=== PATIENT | female | born 1975 | race Caucasian/White ===

== ENCOUNTER 2017-08-15 07:08 | Day surgery (SDC) | payer MEDICAID ==
[~2017-08-15 07:08] MED LIST: ACETAMINOPHEN 1,000 MG/100 ML BTL IV ONE; CEFAZOLIN 2 Gram 2 GM/50 ML BAG IVPB ONE
[2017-08-15] MEDS ORDERED: ONDANSETRON HCL IV 4 MG/2 ML VIAL IVP ONE (07:09)
[2017-08-15] MEDS ORDERED: PROPOFOL 10 MG/ML VIAL IV ONE (07:09)
[2017-08-15] MEDS ORDERED: *PACU ONLY* KETAMINE HCL 10 MG/ML (20ML) VIAL IV ONE (07:09)
[2017-08-15] MEDS ORDERED: FENTANYL PF 100MCG/2ML VIAL IV ONE (07:09)
[2017-08-15] MEDS ORDERED: BUPIVACAINE 0.75% W/EPI MPF 30ML VIAL IVP ONE (07:09)
[2017-08-15] MEDS ORDERED: HYDROCODONE/APAP 5/325MG TABLET PO ONE (07:09)
--- NOTE | 2017-08-17 12:40 | Operative Note ---
DATE OF SURGERY: 08/15/2017 Surgeon: Tomy Levy DO PREOPERATIVE DIAGNOSIS: Multiple scalp masses. POSTOPERATIVE DIAGNOSIS: Multiple scalp masses. OPERATION: Excision of scalp mass x4. There were 4 total. Two measured 0.5 cm into the subcu and two measured 1.0 cm into the subcu. Indication: The patient is a 41-year-old female who has had multiple masses on her scalp. These all have the clinical appearance of probable sebaceous cysts. We did discuss excision; risks, benefits, and alternatives. Risks include bleeding, infection, recurrence. She understood this fully. PROCEDURE: Thereafter, the patient was brought to the operating room and placed in a supine position. Local IV sedation was given per the department of anesthesia. The patient's scalp had been shaved prior. Her hair was put in rubber bands to expose the regions and they were prepped and draped in the usual fashion. Each one was anesthetized with a total of 2 mL of 0.25% Sensorcaine with epinephrine. Incision was made over each and carried down to the capsule of a large sebaceous cyst. These were dissected free and passed off the field. Each one was closed with 3-0 Prolene. Two cysts were 0.5 cm and two were 1.0 cm. She tolerated the procedure well. CC: Diana AHN
== END 2017-08-15 10:30 | disposition home or self-care (01) ==
LOC: SUR 07:08
PROVIDERS: ATTEND Surgery
DX: L72.12 Trichodermal cyst (principal)
CPT/HCPCS: 11423; 00300; J2405; J3010; J0690; J3490

== ENCOUNTER 2017-09-25 08:32 | Emergency (ER) | payer MEDICAID ==
--- NOTE | 2017-09-25 08:49 | Emergency Department Record ---
History of Present Illness - General Chief Complaint: Cough Stated Complaint: COUGH,CONGESTION Time Seen by Provider: 09/25/17 08:42 Source: Patient Mode of Arrival: Ambulatory Limitations: No limitations - History of Present Illness Initial Comments: The patient is here due to a cough, nasal congestion and CP ONLY with coughing for one day. She denies any fever, sputum, SOB, or HOOVER. MD Complaint: Cough, Nasal congestion, Rhinorrhea Onset/Timin -: Days(s) Consistency: Constant - Related Data Previous Rx's Medication Instructions Recorded Albuterol Sulfate [Proair Hfa] 2 puff IH QID PRN #1 inhaler 09/25/17 Azithromycin [Zithromax] 250 mg PO ASDIR #6 tab 09/25/17 Allergies Allergy/AdvReac Type Severity Reaction Status Date / Time No Known Drug Allergies Allergy Verified 09/25/17 08:37 Travel Screening - Travel/Exposure Within Last 30 Days Have you traveled within the last 30 days?: No Review of Systems Constitutional: Denies: Chills, Fever Eyes: Denies: Eye discharge ENT: Reports: Congestion Respiratory: Reports: Cough. Denies: Dyspnea Past Medical History - SOCIAL HISTORY Smoking Status: Never smoker Alcohol Use: None Drug Use: None - RESPIRATORY Hx Respiratory Disorders: No - CARDIOVASCULAR Hx Cardio Disorders: No - NEURO Hx Neuro Disorders: Yes Hx Headaches: Yes (occassionally) - GI Hx GI Disorders: Yes Hx Reflux: Yes (occassionally) - Hx Genitourinary Disorders: No Comment:: s/p tubal - ENDOCRINE Hx Endocrine Disorders: No - MUSCULOSKELETAL Hx Musculoskeletal Disorders: Yes Hx Arthritis: Yes (knee and hip) - PSYCH Hx Psych Problems: Yes Hx Anxiety: Yes Hx Depression: Yes - HEMATOLOGY/ONCOLOGY Hx Hematology/Oncology Disorders: No Family Medical History Any Significant Family History?: Yes Hx Anxiety: Father Hx Diabetes: Mother Physical Exam - General General Appearance: Alert, Oriented x3, Cooperative, No acute distress - Head Head exam: Atraumatic, Normocephalic, Normal inspection - Eye Eye exam: Normal appearance, PERRL - ENT ENT exam: TM's normal bilaterally Throat exam: Tonsillar erythema. negative: Normal inspection, Tonsillomegaly, Tonsillar exudate, R peritonsillar mass, L peritonsillar mass - Neck Neck exam: Normal inspection, Full ROM. negative: Lymphadenopathy, Meningismus , Tenderness - Respiratory Respiratory exam: Normal lung sounds bilaterally. negative: Respiratory distress - Cardiovascular Cardiovascular Exam: Regular rate, Normal rhythm, Normal heart sounds - GI/Abdominal GI/Abdominal exam: Soft, Normal bowel sounds. negative: Tenderness Course Vital Signs 09/25/17 08:38 Temperature 97.8 F Pulse Rate 109 H Respiratory 20 Rate Blood Pressure 116/81 Pulse Ox 97 - Reevaluation(s) Reevaluation #1: I did discuss the XRAY results with the patient and the need for F/U. 09/25/17 09:22 Medical Decision Making - Data Complexity MDM Data: X-Ray Ordered and/or Reviewed (CXR: poss mild R lung infiltrate.) Disposition Disposition: Discharge Clinical Impression: URI (upper respiratory infection) Qualifiers: URI type: unspecified URI Qualified Code(s): J06.9 - Acute upper respiratory infection, unspecified Disposition: Home, Self-Care Condition: (2) Stable Instructions: Cold Symptoms (ED) Additional Instructions: Please take the medicines as directed. Please see your PCP if not better in 3 days and return to the ER for any worsening symptoms. Prescriptions: Albuterol Sulfate [Proair Hfa] 2 puff IH QID PRN #1 inhaler PRN Reason: Cough And Difficulty Breathing Azithromycin [Zithromax] 250 mg PO ASDIR #6 tab Forms: Patient Portal Access Time of Disposition: 09:24 Quality - Quality Measures Quality Measures: N/A - Blood Pressure Screening View Details: Yes Does Patient Have Any of the Following: No Blood Pressure Classification: Pre-Hypertensive BP Reading Systolic Measurement: 102 Diastolic Measurement: 81 Screening for High Blood Pressure: < Pre-Hypertensive BP, F/U Documented > [ G8950] Pre-Hypertensive Follow-up Interventions: Referral to alternative/primary care provider.
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
== END 2017-09-25 09:31 | disposition home or self-care (01) ==
LOC: ER 08:32
DX: J06.9 Acute upper respiratory infection, unspecified (principal); R05 Cough; R06.00 Dyspnea, unspecified
CPT/HCPCS: 71046; 99283

== ENCOUNTER 2018-02-06 07:50 | Emergency (ER) | payer MEDICAID ==
[2018-02-06] MEDS ORDERED: Diph,Pert(Acell),Tet Vac 0.5 ML SYR IM ONE (07:59)
[2018-02-06] MEDS ORDERED: CLINDAMYCIN 150 MG CAP PO ONE (07:59)
[2018-02-06] MEDS ORDERED: ONDANSETRON 4 MG ODT TABLET SL ONE (08:30)
[2018-02-06] MEDS ORDERED: MAGNESIUM HYDROXIDE/AL HYDROX 30 ML, LIDOCAINE VISC 2% 15ML 15 ML PO ONE ×2 (08:30)
[2018-02-06] MEDS ORDERED: SUCRALFATE 1 G/10 ML UD PO ONE (08:56)
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
== END 2018-02-06 09:24 | disposition home or self-care (01) ==
LOC: ER 07:50
DX: T25.122A Burn of first degree of left foot, initial encounter (principal); R12 Heartburn; R11.2 Nausea with vomiting, unspecified; T36.8X5A Adverse effect of other systemic antibiotics, initial encounter; X12.XXXA Contact with other hot fluids, initial encounter; Y92.230 Patient room in hospital as the place of occurrence of the external cause
CPT/HCPCS: 16020; 99283 ×2; 96372; J3490; 90715

== ENCOUNTER 2018-07-22 08:44 | Emergency (ER) | payer SELFPAY ==
--- NOTE | 2018-07-22 08:57 | Emergency Department Record ---
History of Present Illness - General Chief Complaint: Abdominal Pain Stated Complaint: ABDOMINAL PAIN Time Seen by Provider: 07/22/18 08:56 - Related Data Previous Rx's Medication Instructions Recorded Ciprofloxacin HCl [Cipro] 500 mg PO Q12HR #20 tablet 07/22/18 Phenazopyridine HCl [Pyridium] 100 mg PO TID #9 tablet 07/22/18 Allergies Allergy/AdvReac Type Severity Reaction Status Date / Time clindamycin Allergy CHEST PAIN Unverified 04/26/18 13:21 Past Medical History - SOCIAL HISTORY Smoking Status: Never smoker Drug Use: None - RESPIRATORY Hx Respiratory Disorders: No - CARDIOVASCULAR Hx Cardio Disorders: No - NEURO Hx Neuro Disorders: Yes Hx Headaches: Yes (occassionally) - GI Hx GI Disorders: Yes Hx Reflux: Yes (occassionally) - Hx Genitourinary Disorders: No Comment:: s/p tubal - ENDOCRINE Hx Endocrine Disorders: No - MUSCULOSKELETAL Hx Musculoskeletal Disorders: Yes Hx Arthritis: Yes (knee and hip) - PSYCH Hx Psych Problems: Yes Hx Anxiety: Yes Hx Depression: Yes - HEMATOLOGY/ONCOLOGY Hx Hematology/Oncology Disorders: No Family Medical History Hx Anxiety: Father Hx Diabetes: Mother Medical Decision Making - Lab Data Result diagrams: 07/22/18 09:25 07/22/18 09:25 Disposition Clinical Impression: Abdominal pain, UTI (urinary tract infection) Disposition: Home, Self-Care Condition: (1) Good Additional Instructions: follow up with family Dr in one week sooner if worse also use advil OTC three pills three times a day Prescriptions: Ciprofloxacin HCl [Cipro] 500 mg PO Q12HR #20 tablet Phenazopyridine HCl [Pyridium] 100 mg PO TID #9 tablet Forms: Patient Portal Access Quality - Quality Measures Quality Measures: N/A - Blood Pressure Screening Does Patient Have Any of the Following: No Blood Pressure Classification: Normal BP Reading Systolic Measurement: 114 Diastolic Measurement: 72 Screening for High Blood Pressure: < Normal BP, F/U Not Required > [G8783]
--- NOTE | 2018-07-22 09:05 | Emergency Department Record ---
History of Present Illness - General Chief Complaint: Abdominal Pain Stated Complaint: ABDOMINAL PAIN Time Seen by Provider: 07/22/18 08:56 Mode of Arrival: Ambulatory - History of Present Illness Initial Comments: left lower quad pain which started at 2 am today sharp pain which goes across the lower abdominal pain. Yesterday nausea and no vomiting or diarrhea, no dysuria and LMP dec 15 normal. Onset/Timin -: Hour(s) Location: LLQ Radiation: RLQ Migration to: No migration Severity: Moderate Severity scale (1-10): 8 Quality: Sharp Consistency: Intermittent Improves With: Rest Worsens With: Movement Context: Other - Related Data LMP Date: 07/08/18 Patient : No Previous Rx's Medication Instructions Recorded Ciprofloxacin HCl [Cipro] 500 mg PO Q12HR #20 tablet 07/22/18 Phenazopyridine HCl [Pyridium] 100 mg PO TID #9 tablet 07/22/18 Allergies Allergy/AdvReac Type Severity Reaction Status Date / Time clindamycin Allergy CHEST PAIN Unverified 04/26/18 13:21 Travel Screening - Travel/Exposure Within Last 30 Days Have you traveled within the last 30 days?: No - Travel/Exposure Within Last Year Have you traveled outside the [place] in the last year?: No - Additonal Travel Details Have you been exposed to anyone with a communicable illness?: No - Travel Symptoms Symptom Screening: None Review of Systems Reviewed: No additional complaints except as noted below Constitutional: Reports: As per HPI. Denies: Chills, Fever, Malaise, Night sweats, Weakness, Weight change Eyes: Reports: As per HPI. Denies: Eye discharge, Eye pain, Photophobia, Vision change ENT: Reports: As per HPI. Denies: Congestion, Dental pain, Ear pain, Epistaxis , Hearing loss, Throat pain Respiratory: Reports: As per HPI. Denies: Cough, Dyspnea, Hemoptysis, Stridor, Wheezes Cardiovascular: Reports: As per HPI. Denies: Arrhythmia, Chest pain, Dyspnea on exertion, Edema, Murmurs, Orthopnea, Palpitations, Paroxysmal nocturnal dyspnea, Rheumatic Fever, Syncope Endocrine: Reports: As per HPI. Denies: Fatigue, Heat or cold intolerance, Polydipsia, Polyuria Gastrointestinal: Reports: As per HPI, Abdominal pain, Nausea. Denies: Constipation, Diarrhea, Hematemesis, Hematochezia, Melena, Vomiting Genitourinary: Reports: As per HPI. Denies: Abnormal menses, Discharge, Dyspareunia, Dysuria, Frequency, Hematuria, Incontinence, Retention, Urgency Musculoskeletal: Reports: As per HPI. Denies: Arthralgia, Back pain, Gout, Joint swelling, Myalgia, Neck pain Skin: Reports: As per HPI. Denies: Bruising, Change in color, Change in hair/ nails, Lesions, Pruritus, Rash Neurological: Reports: As per HPI. Denies: Abnormal gait, Confusion, Headache, Numbness, Paresthesias, Seizure, Tingling, Tremors, Vertigo, Weakness Psychiatric: Reports: As per HPI. Denies: Anxiety, Auditory hallucinations, Depression, Homicidal thoughts, Suicidal thoughts, Visual hallucinations Hematological/Lymphatic: Reports: As per HPI. Denies: Anemia, Blood Clots, Easy bleeding, Easy bruising, Swollen glands Past Medical History - SOCIAL HISTORY Smoking Status: Never smoker Drug Use: None - RESPIRATORY Hx Respiratory Disorders: No - CARDIOVASCULAR Hx Cardio Disorders: No - NEURO Hx Neuro Disorders: Yes Hx Headaches: Yes (occassionally) - GI Hx GI Disorders: Yes Hx Reflux: Yes (occassionally) - Hx Genitourinary Disorders: No Comment:: s/p tubal - ENDOCRINE Hx Endocrine Disorders: No - MUSCULOSKELETAL Hx Musculoskeletal Disorders: Yes Hx Arthritis: Yes (knee and hip) - PSYCH Hx Psych Problems: Yes Hx Anxiety: Yes Hx Depression: Yes - HEMATOLOGY/ONCOLOGY Hx Hematology/Oncology Disorders: No Family Medical History Hx Anxiety: Father Hx Diabetes: Mother Physical Exam - General General Appearance: Alert, Oriented x3, Cooperative, No acute distress - Head Head exam: Normal inspection - Eye Eye exam: Normal appearance, PERRL Pupils: Normal accommodation - ENT ENT exam: Normal exam, Mucous membranes moist, Normal external ear exam, Normal orophraynx, TM's normal bilaterally Ear exam: Normal external inspection. negative: External canal tenderness Nasal Exam: Normal inspection. negative: Discharge, Sinus tenderness Mouth exam: Normal external inspection, Tongue normal Teeth exam: Normal inspection. negative: Dental caries Throat exam: Normal inspection. negative: Tonsillar erythema, Tonsillar exudate - Neck Neck exam: Normal inspection, Full ROM. negative: Tenderness - Respiratory Respiratory exam: Normal lung sounds bilaterally. negative: Respiratory distress - Cardiovascular Cardiovascular Exam: Regular rate, Normal rhythm, Normal heart sounds - GI/Abdominal GI/Abdominal exam: Soft, Normal bowel sounds, Tenderness (left lower quad). negative: Distended, Guarding, Mass, Rebound, Rigid - Rectal Rectal exam: Deferred - exam: Deferred - Extremities Extremities exam: Normal inspection, Full ROM, Normal capillary refill. negative: Tenderness - Back Back exam: Reports: Normal inspection, Full ROM. Denies: Muscle spasm, Rash noted, Tenderness - Neurological Neurological exam: Alert, Normal gait, Oriented X3, Reflexes normal - Psychiatric Psychiatric exam: Normal affect, Normal mood - Skin Skin exam: Dry, Intact, Normal color, Warm Course Vital Signs 07/22/18 08:47 Temperature 97.6 F Pulse Rate 84 Respiratory 18 Rate Blood Pressure 114/72 Pulse Ox 99 - Reevaluation(s) Reevaluation #1: Patient stated she has had ibuprofen in the last couple of days 07/22/18 09:09 Medical Decision Making - Data Complexity MDM Data: Labs Ordered and/or Reviewed (UA wbc greater than 50), X-Ray Ordered and/or Reviewed (CT abdomin and pelvis negative) - Lab Data Result diagrams: 07/22/18 09:25 07/22/18 09:25 Disposition Clinical Impression: Abdominal pain Qualifiers: Abdominal location: left lower quadrant Qualified Code(s): R10.32 - Left lower quadrant pain UTI (urinary tract infection) Qualifiers: Urinary tract infection type: acute cystitis Hematuria presence: without hematuria Qualified Code(s): N30.00 - Acute cystitis without hematuria Disposition: Home, Self-Care Condition: (1) Good Additional Instructions: follow up with family Dr in one week sooner if worse also use advil OTC three pills three times a day Prescriptions: Ciprofloxacin HCl [Cipro] 500 mg PO Q12HR #20 tablet Phenazopyridine HCl [Pyridium] 100 mg PO TID #9 tablet Forms: Patient Portal Access Time of Disposition: 10:39 Quality - Quality Measures Quality Measures: N/A - Blood Pressure Screening Does Patient Have Any of the Following: No Blood Pressure Classification: Normal BP Reading Systolic Measurement: 114 Diastolic Measurement: 72 Screening for High Blood Pressure: < Normal BP, F/U Not Required > [G8783]
[2018-07-22] MEDS ORDERED: 0.9 % SODIUM CHLORIDE 1,000 ML BAG IV ONE (09:06)
[2018-07-22] MEDS ORDERED: KETOROLAC 30 MG/ML VIAL IVP ONE (09:06)
[2018-07-22 09:30] LABS: BASO % 0.7 % (0-6); EOS % 2.9 % (0-6); GRAN % 57.8 % (47-80); HEMATOCRIT 37.6 % (35.0-47.0); HEMOGLOBIN 12.6 gm/dl (11.6-16.0); LYMPH % 29.5 % (16-45); MEAN CELL VOLUME 91.5 fl (81-97); MEAN CORPUSCULAR HEMOGLOBIN 30.7 pg (27-33); MEAN CORPUSCULAR HGB CONC 33.5 g/dl (32-36); MEAN PLATELET VOLUME 10.3 fl (7.4-10.4); MONO % 9.1 % (0-9); PLATELET COUNT 369 K/uL (130-400); RED BLOOD COUNT 4.11 M/uL (3.80-5.40); WHITE BLOOD COUNT W/O DIFF 7.6 K/uL (4.2-12.2)
[2018-07-22 09:37] LABS: URINE APPEARANCE SL CLOUDY; URINE BILIRUBIN NEGATIVE (NEGATIVE); URINE BLOOD LARGE (NEGATIVE); URINE COLOR YELLOW; URINE GLUCOSE (UA) NEGATIVE (NEGATIVE); URINE KETONE NEGATIVE (NEGATIVE); URINE LEUKOCYTE ESTERASE LARGE (NEGATIVE); URINE NITRITE NEGATIVE (NEGATIVE); URINE PROTEIN NEGATIVE (NEGATIVE); URINE UROBILINOGEN 0.2 E.U./dL (0.20 - 1.00)
[2018-07-22 09:40] LABS: BLOOD UREA NITROGEN 6 mg/dL (6-20)
[2018-07-22 09:41] LABS: CREATININE 0.7 mg/dL (0.5-0.9); EST GLOMERULAR FILTRATION RATE > 60 mL/min; HCG,QUALITATIVE URINE NEGATIVE (NEGATIVE); TOTAL PROTEIN 7.2 g/dL (6.6-8.7)
[2018-07-22 09:43] LABS: GLUCOSE,RANDOM 97 mg/dL (74-109)
[2018-07-22 09:46] LABS: ALBUMIN 3.8 g/dL (4.0-5.0); ALKALINE PHOSPHATASE 111 U/L (35-104); ALT/SGPT 11 U/L (<33); AST/SGOT 11 U/L (10.0-35.0); LIPASE 22 U/L (13-60); URINE WBC >50 (0-2/hpf)
[2018-07-22 09:47] LABS: BILIRUBIN,DIRECT < 0.2 mg/dL (0-0.3); URINE BACTERIA 3+; URINE SQUAMOUS EPITHELIAL CELL 16 - 20 /hpf; URINE TRANSITIONAL EPI CELLS 0 - 2 /hpf
[2018-07-22] MEDS ORDERED: CIPROFLOXACIN HCL 500 MG TABLET PO ONE (10:30)
[2018-07-22] MEDS ORDERED: PHENAZOPYRIDINE HCL 95 MG TABLET PO ONE (10:34)
--- NOTE | 2018-07-23 09:26 | CT SCAN REPORT ---
EXAM: CT SCAN ABDOMEN/PELVIS WO CONTRAST HISTORY: LEFT LOWER QUADRANT PAIN AND FLANK PAIN. TECHNIQUE: Routine CT imaging of the abdomen and pelvis obtained without contrast. COMPARISON: 06/25/10. FINDINGS: There is bibasilar atelectasis or scar. Liver, gallbladder, pancreas, spleen, and adrenals have a normal noncontrast appearance. No renal or ureteral calculi or hydronephrosis. There is an exophytic cyst lower pole right kidney. The bowel is normal in caliber. Appendix has a normal CT appearance. No gastrointestinal inflammatory change. The bladder is unremarkable. Uterus is retroverted. Aorta is normal in caliber. No abdominal or pelvic lymphadenopathy. No free air or free fluid. There is a tiny fat-containing periumbilical hernia. No acute osseous abnormality. Previous IM nail placement right femur. IMPRESSION: 1. NO ACUTE INTRA-ABDOMINAL OR PELVIC ABNORMALITY IDENTIFIED. 2. EXOPHYTIC CYST LOWER POLE RIGHT KIDNEY. 3. TINY FAT-CONTAINING PERIUMBILICAL HERNIA. 4. PREVIOUS RIGHT FEMORAL IM NAIL PLACEMENT AND REMOVAL. JOB NUMBER: [id number] [facility]
== END 2018-07-22 10:55 | disposition home or self-care (01) ==
LOC: ER 08:44
DX: N30.00 Acute cystitis without hematuria (principal); R10.32 Left lower quadrant pain
CPT/HCPCS: 99284 ×2; 96374; 96361; 83690; 85025; 80076; 80048; 81001; 81025; 74176; J1885; J7030

== ENCOUNTER 2018-12-27 14:59 | Emergency (ER) | payer MEDICAID ==
--- NOTE | 2018-12-27 17:50 | Emergency Department Record ---
History of Present Illness - General Chief Complaint: Knee injury Stated Complaint: RT KNEE POPPED OUT Time Seen by Provider: 12/27/18 17:43 Mode of Arrival: Wheelchair - History of Present Illness Initial Comments: twisted knee on the street curb adn has lateral right knee pain Onset/Timin -: Hour(s) Type of Injury: Unknown Place: Street/outdoors Severity scale (1-10): 9 Improves With: Nothing Worsens With: Weight bearing Associated Symptoms: Snap/pop sensation, Unable to bear weight - Related Data Previous Rx's Medication Instructions Recorded Naproxen [Naprosyn] 500 mg PO Q12H #20 tab. 12/27/18 Allergies Allergy/AdvReac Type Severity Reaction Status Date / Time clindamycin Allergy CHEST PAIN Unverified 04/26/18 13:21 Travel Screening - Travel/Exposure Within Last 30 Days Have you traveled within the last 30 days?: No Review of Systems Reviewed: No additional complaints except as noted below Constitutional: Reports: As per HPI. Denies: Chills, Fever, Malaise, Night sweats, Weakness, Weight change Eyes: Reports: As per HPI. Denies: Eye discharge, Eye pain, Photophobia, Vision change ENT: Reports: As per HPI. Denies: Congestion, Dental pain, Ear pain, Epistaxis, Hearing loss, Throat pain Respiratory: Reports: As per HPI. Denies: Cough, Dyspnea, Hemoptysis, Stridor, Wheezes Cardiovascular: Reports: As per HPI. Denies: Arrhythmia, Chest pain, Dyspnea on exertion, Edema, Murmurs, Orthopnea, Palpitations, Paroxysmal nocturnal dyspnea, Rheumatic Fever, Syncope Endocrine: Reports: As per HPI. Denies: Fatigue, Heat or cold intolerance, Polydipsia, Polyuria Gastrointestinal: Reports: As per HPI. Denies: Abdominal pain, Constipation, Diarrhea, Hematemesis, Hematochezia, Melena, Nausea, Vomiting Genitourinary: Reports: As per HPI. Denies: Abnormal menses, Discharge, Dyspareunia, Dysuria, Frequency, Hematuria, Incontinence, Retention, Urgency Musculoskeletal: Reports: As per HPI. Denies: Arthralgia, Back pain, Gout, Joint swelling, Myalgia, Neck pain Skin: Reports: As per HPI. Denies: Bruising, Change in color, Change in hair/nails, Lesions, Pruritus, Rash Neurological: Reports: As per HPI. Denies: Abnormal gait, Confusion, Headache, Numbness, Paresthesias, Seizure, Tingling, Tremors, Vertigo, Weakness Psychiatric: Reports: As per HPI. Denies: Anxiety, Auditory hallucinations, Depression, Homicidal thoughts, Suicidal thoughts, Visual hallucinations Hematological/Lymphatic: Reports: As per HPI. Denies: Anemia, Blood Clots, Easy bleeding, Easy bruising, Swollen glands Past Medical History - SOCIAL HISTORY Smoking Status: Never smoker - RESPIRATORY Hx Respiratory Disorders: No - CARDIOVASCULAR Hx Cardio Disorders: No - NEURO Hx Neuro Disorders: Yes Hx Headaches: Yes (occassionally) - GI Hx GI Disorders: Yes Hx Reflux: Yes (occassionally) - Hx Genitourinary Disorders: No Comment:: s/p tubal - ENDOCRINE Hx Endocrine Disorders: No - MUSCULOSKELETAL Hx Musculoskeletal Disorders: Yes Hx Arthritis: Yes (knee and hip) - PSYCH Hx Psych Problems: Yes Hx Anxiety: Yes Hx Depression: Yes - HEMATOLOGY/ONCOLOGY Hx Hematology/Oncology Disorders: No Family Medical History Any Significant Family History?: Yes Hx Anxiety: Father Hx Diabetes: Mother Physical Exam - General General Appearance: Alert, Oriented x3, Cooperative, No acute distress - Head Head exam: Normal inspection - Eye Eye exam: Normal appearance, PERRL Pupils: Normal accommodation - ENT ENT exam: Normal exam, Mucous membranes moist, Normal external ear exam, Normal orophraynx, TM's normal bilaterally Ear exam: Normal external inspection. negative: External canal tenderness Nasal Exam: Normal inspection. negative: Discharge, Sinus tenderness Mouth exam: Normal external inspection, Tongue normal Teeth exam: Normal inspection. negative: Dental caries Throat exam: Normal inspection. negative: Tonsillar erythema, Tonsillar exudate - Neck Neck exam: Normal inspection, Full ROM. negative: Tenderness - Respiratory Respiratory exam: Normal lung sounds bilaterally. negative: Respiratory distress - Cardiovascular Cardiovascular Exam: Regular rate, Normal rhythm, Normal heart sounds - GI/Abdominal GI/Abdominal exam: Soft, Normal bowel sounds. negative: Tenderness - Rectal Rectal exam: Deferred - exam: Deferred - Extremities Extremities exam: Normal inspection, Full ROM, Normal capillary refill. negative: Tenderness - Back Back exam: Reports: Normal inspection, Full ROM. Denies: Muscle spasm, Rash noted, Tenderness - Neurological Neurological exam: Alert, Normal gait, Oriented X3, Reflexes normal - Psychiatric Psychiatric exam: Normal affect, Normal mood - Skin Skin exam: Dry, Intact, Normal color, Warm Course Vital Signs 12/27/18 15:45 Temperature 98.1 F Pulse Rate 70 Respiratory 20 Rate Blood Pressure 121/80 Pulse Ox 97 Disposition Clinical Impression: Knee sprain Qualifiers: Encounter type: initial encounter Involved ligament of knee: lateral collateral ligament Laterality: right Qualified Code(s): S83.421A - Sprain of lateral collateral ligament of right knee, initial encounter Disposition: Home, Self-Care Condition: (1) Good Instructions: Knee Sprain (ED) Additional Instructions: follow up with family DR in 5 days Prescriptions: Naproxen [Naprosyn] 500 mg PO Q12H #20 tab.dr Time of Disposition: 17:50 Quality - Quality Measures Quality Measures: N/A - Blood Pressure Screening Does Patient Have Any of the Following: No Blood Pressure Classification: Pre-Hypertensive BP Reading Systolic Measurement: 121 Diastolic Measurement: 80 Screening for High Blood Pressure: < Pre-Hypertensive BP, F/U Documented > [[id number]] Pre-Hypertensive Follow-up Interventions: Referral to alternative/primary care provider.
--- NOTE | 2018-12-29 13:27 | RADIOLOGY REPORT ---
EXAM: RIGHT KNEE, FOUR VIEWS HISTORY: RIGHT KNEE INJURY. HAD PINS AND RODS REMOVED AT AGE 11. TECHNIQUE: Four views of the right knee were obtained. Comparison: Right knee series 07/06/16. Encounter: Initial. FINDINGS: The previous noted tunnel like defect possibly related to prior ACL repair again seen in the distal femur and proximal tibia as before. A couple small chronic calcific densities adjacent to the medial and lateral femoral condyles also present previously. Mild degenerative arthritis in the knee similar to before. Apparent old screw tracts in the distal femur also again seen, best demonstrated on the lateral view. When comparison is made with the prior study, no definite acute fracture, dislocation, or joint effusion identified. IMPRESSION: 1. POSTOPERATIVE FINDINGS PREVIOUSLY NOTED. 2. SOME CHRONIC CALCIFIC DENSITIES ABOUT THE KNEE PREVIOUSLY NOTED. 3. DEGENERATIVE ARTHRITIS AGAIN EVIDENT. 4. NO DEFINITE ACUTE FRACTURE OF THE RIGHT KNEE IDENTIFIED. J[facility]BER: [id number] [facility]
== END 2018-12-27 18:09 | disposition home or self-care (01) ==
LOC: ER 14:59
DX: S83.421A Sprain of lateral collateral ligament of right knee, initial encounter (principal); X50.1XXA Overexertion from prolonged static or awkward postures, initial encounter; Y92.488 Other paved roadways as the place of occurrence of the external cause
CPT/HCPCS: 99283